=== PATIENT | female | born 2000 | race Caucasian/White ===

== ENCOUNTER 2025-02-25 13:46 | Emergency (ER) | payer OTHER, SELFPAY ==
[2025-02-25] VITALS (26 sets, daily range): BP systolic 97–106; BP diastolic 60–80
--- NOTE | 2025-02-25 15:12 | ED.GENMED ---
History of Present Illness
<Peewee Molina PA-C - Last Filed: 02/25/25 23:06>
General
Chief Complaint: Fainting/Passed Out
Time Seen by Provider: 02/25/25 14:14
History of Present Illness
History of Present Illness:
24-year-old autistic female presents to the emergency department for evaluation after multiple syncopal events. Apparently went to the primary care physician's office for URI symptoms and had a syncopal event without a prodrome that occurred while
sitting on the exam table. Shortly after waking up she got up and syncopized again. On arrival the patient is her neurologic baseline, agitated and does not wish to be in the emergency department. Abrasions noted to the forehead as well as left
face. No reported vomiting noted. No [id number] medications were given today for cold symptoms. No recent fevers or chills
Review of Systems
<Peewee Molina PA-C - Last Filed: 02/25/25 23:06>
Review of Systems
Allergies reviewed?: Yes
All Other Systems: ROS reviewed and negative except as documented in HPI and ROS
Phy Exam
<Peewee Molina PA-C - Last Filed: 02/25/25 23:06>
Physical Exam
Physical Exam:
GEN: Well appearing, NAD, WDWN
HEENT: Oral mucosa moist, no scleral icterus
Cardiac: Regular rate
Lung: No respiratory distress, no tachypnea
MSK: No gross deformity or injuries
Skin: Good color, no pallor or jaundice, no rashes
Neuro: AO x3, moves all extremities freely
Psych: Calm, cooperative
Course
<Peewee Molina PA-C - Last Filed: 02/25/25 23:06>
Orders/Labs/Results
Orders:
Orders
02/25/25 14:07
Electrocardiogram (*1) Urgent
Reason for Study: Chest Pain
EKG- Treatment ONCE
02/25/25 14:34
Test Result ONCE
02/25/25 15:10
Ketamine [Ketamine HCl] 300 mg IM NOW STA
02/25/25 15:43
COVID-19 Antigen Urgent
Source: Nasal Swab
Complete Blood Count/With Diff Urgent
Comprehensive Metabolic Panel Urgent
HCG, Serum Qualitative Screen Urgent
Influenza A+B Rapid Molecular Urgent
CHERYL Source: Nasal Swab
Specimen Description:
02/25/25 16:38
Ondansetron Injectable [Zofran] 4 mg IV NOW STA
Abnormal Lab Results
02/25/25
15:43
MCH 26.6 L pg
(27.0-31.0)
MCHC 31.9 L g/dL
(33.0-37.0)
MPV 11.6 H fL
(7.4-10.4)
Absolute Lymphs (auto) 0.4 L 10^3/uL
(1.2-3.4)
Absolute Monos (auto) 1.1 H 10^3/uL
(0.1-0.6)
Immature Gran % 0.7 H %
(0-0.5)
Lymphocytes % 6.2 L %
(20.5-51.1)
Monocytes % 17.5 H %
(1.7-9.3)
02/25/25 15:43
02/25/25 15:43
Vital Signs
Initial and Last Documented VS:
Initial Vital Signs
Temp Pulse Resp BP Pulse Ox
98.2 F 98 16 98/60 98
02/25/25 14:03 02/25/25 14:03 02/25/25 14:03 02/25/25 14:03 02/25/25 14:03
Last Documented Vital Signs
Temp Pulse Resp BP Pulse Ox
98.2 F 87 17 103/80 95
02/25/25 14:03 02/25/25 18:05 02/25/25 18:05 02/25/25 18:05 02/25/25 18:05
<Zia Kim MD - Last Filed: 02/25/25 18:54>
Orders/Labs/Results
Orders:
Orders
02/25/25 14:07
Electrocardiogram (*1) Urgent
Reason for Study: Chest Pain
EKG- Treatment ONCE
02/25/25 14:34
Test Result ONCE
02/25/25 15:10
Ketamine [Ketamine HCl] 300 mg IM NOW STA
02/25/25 15:43
COVID-19 Antigen Urgent
Source: Nasal Swab
Complete Blood Count/With Diff Urgent
Comprehensive Metabolic Panel Urgent
HCG, Serum Qualitative Screen Urgent
Influenza A+B Rapid Molecular Urgent
CHERYL Source: Nasal Swab
Specimen Description:
02/25/25 16:38
Ondansetron Injectable [Zofran] 4 mg IV NOW STA
Abnormal Lab Results
02/25/25
15:43
MCH 26.6 L pg
(27.0-31.0)
MCHC 31.9 L g/dL
(33.0-37.0)
MPV 11.6 H fL
(7.4-10.4)
Absolute Lymphs (auto) 0.4 L 10^3/uL
(1.2-3.4)
Absolute Monos (auto) 1.1 H 10^3/uL
(0.1-0.6)
Immature Gran % 0.7 H %
(0-0.5)
Lymphocytes % 6.2 L %
(20.5-51.1)
Monocytes % 17.5 H %
(1.7-9.3)
02/25/25 15:43
02/25/25 15:43
Vital Signs
Initial and Last Documented VS:
Initial Vital Signs
Temp Pulse Resp BP Pulse Ox
98.2 F 98 16 98/60 98
02/25/25 14:03 02/25/25 14:03 02/25/25 14:03 02/25/25 14:03 02/25/25 14:03
Last Documented Vital Signs
Temp Pulse Resp BP Pulse Ox
98.2 F 87 17 103/80 95
02/25/25 14:03 02/25/25 18:05 02/25/25 18:05 02/25/25 18:05 02/25/25 18:05
Procedures
<Peewee Molina PA-C - Last Filed: 02/25/25 23:06>
Moderate Sedation
ASA Risk Score: Class I
Chart and allergies reviewed: Yes
Consent for anesthesia obtained: Yes
Time out completed (validating right patient & procedure): Yes
Moderate Sedation Start Time(when first medication is given): 15:20
History of difficult intubation: No
Airway free of obstruction: Yes
Patient has a gag reflex: Yes
Patient is able to open mouth: Yes
Patient has no dentures: Yes
Patient has no loose teeth: Yes
Medication administered by Provider during Moderate Sedation: Other (ketamine)
Total dose administered: 300
Time drug administered: 15:20
Moderate Sedation Procedure End Time: 17:54
<Peewee Molina PA-C - Last Filed: 02/25/25 23:06>
MDM/Problems Addressed
MDM/Problems Addressed:
Due to abrupt onset of drops and patient required workup with EKG and labs. Due to her autism disorder and significant agitation, required ketamine sedation to facilitate workup. Sedation was tolerated well without any complications. Workup was
grossly unremarkable. May require outpatient Holter
<Peewee Molina PA-C - Last Filed: 02/25/25 23:06>
*Pulse Oximetry
SaO2: 98
Oxygen Mode of Delivery: Room air
Patient hypoxic: no
*Critical Care Note
Total Time (30-74mins, 75-104mins- exclusive of procedures): Not Applicable
ED Attending Note
<TERRI Brar-Kole - Last Filed: 02/25/25 23:06>
-
Portions of this chart may have been created with voice recognition software.� Occasional wrong word or��sound alike� substitutions may have occurred due to the inherent limitations of voice recognition software.
<Zia Kim MD - Last Filed: 02/25/25 18:54>
ED Attending Note
Patient seen and examined by attending physician: Yes
ED Attending Note:
I have seen and evaluated the patient with a [id number] encounter. I have spoken to the advance practicer provider and involved in the medical history, the physical exam, medical decision making.
Evaluation and management service: agree unless noted differently below.
Results interpretation: agree unless noted differently below.
Focused HPI: 24-year-old female with a past medical history of autism presents to the emergency room with her parents for evaluation after a syncopal event. Mother reports patient has had a 'head cold' for the past day or 2. Went to primary care
office today to be assessed and apparently while in the exam paperwork had witnessed syncopal event. She did fall down and suffered some abrasions to the face. When I tried to help her up patient had second event. Since then she has been behaving
normally. Aside from facial abrasions no reported serious injuries. No history of similar issues in the past.
Physical exam: Awake and alert, somewhat anxious. Vital signs all within acceptable range.
Medical Decision Makin-year-old female presents after syncope x 2 in quick succession. Unfortunately with her history of autism she has been very resistant to allow for even an EKG here; with 2 episodes in short order she should have
assessment including labs and decision was made to sedate with ketamine to facilitate workup. Parents agreeable. Send basic labs, check EKG, hCG, viral swabs. Monitor on telemetry. Reassess at the above.
Labs reviewed and unremarkable, EKG sinus rhythm no ectopy. Patient clinically stable throughout ER observation. Plan to discharge follow-up with primary provider on an outpatient basis.
Discharge Plan
Departure
Patient Disposition: Home (Routine Discharge)
Date of Disposition: 02/25/25
Time of Disposition: 18:30
Patient with high blood pressure during this ER visit?: No
Discharge Problem:
Syncope
Instructions: Syncope (Fainting) (DC)
Prescriptions:
No Action
Zoloft:
1.5 ml PO DAILY
amoxicillin 250 MG/5 ML suspension for reconstitution
500 mg PO BID Qty: 200 0RF
Referrals:
Suzette Puckett DO [Family Provider, Family Practice]
Lindsay Britton DO [Active, Cardiology]
Activity Restrictions/Additional Instructions:
If there are any further fainting events please consider following up with cardiology for home cardiac monitoring
Interventions
Interventions:
*General Assessment Last Done: 02/25/25 14:03
*Neglect/Abuse Screening Last Done: 02/25/25 14:03
*ED COVID-19 Vaccine History Last Done: 02/25/25 16:02
*ED Influenza Vaccine History Last Done: 02/25/25 16:02
*Risk Screen - Suicide (C-SSRS) Last Done: 02/25/25 14:03
*Nursing Disposition Last Done: 02/25/25 18:53
ED- Cardiac Assessment Last Done: 02/25/25 16:01
ED- Neurological Assessment Last Done: 02/25/25 16:01
Discharge Date and Time
Discharge Date/Time: 02/25/25 18:54
Print Language: SETSWANA
[2025-02-25] MEDS: KETAMINE HCL 300 MG IM (15:20)
[2025-02-25 16:02] LABS: Hematocrit 38.9 % (37.0-47.0); Hemoglobin 12.4 g/dL (12.0-16.0); Mean Corp Hgb Conc. 31.9 g/dL (33.0-37.0); Mean Corpuscular Volume 83.3 fL (81.0-99.0); Nucleated Red Blood Cells % 0 %; Platelet Count 210 10^3/uL (130-400); Red Cell Dist. Width 13.4 % (11.5-14.5)
[2025-02-25 16:06] LABS: HCG, Serum Qualitative Screen Negative
[2025-02-25 16:12] LABS: ALT (SGPT) 20 U/L (0-35); AST (SGOT) 25 U/L (14-36); Albumin 4.7 g/dl (3.5-5.0); Alkaline Phosphatase 97 U/L (38-126); Blood Urea Nitrogen 11 mg/dl (7-17); Calcium 9.5 mg/dl (8.4-10.2); Carbon Dioxide 28 mmol/L (22-30); Chloride 101 mmol/L (98-107); Glucose 90 mg/dl (70-99); Potassium 4.4 mmol/L (3.5-5.1); Sodium 135 mmol/L (135-145); Total Protein 7.6 g/dl (6.3-8.2); eGFR > 60.00
[2025-02-25 16:26] LABS: COVID-19 Antigen Negative (Negative)
[2025-02-25] MEDS: ZOFRAN 4 MG IV (18:16)
== END 2025-02-25 18:54 | disposition home or self-care (01) ==
LOC: EMR 13:46
PROVIDERS: Physician Assistant; EMERGENCY PHYSICIAN Emergency Medicine; FAMILY PHYSICIAN Family Medicine
DX: R55 Syncope and collapse (principal); S00.81XA Abrasion of other part of head, initial encounter; Z11.52 Encounter for screening for COVID-19; W19.XXXA Unspecified fall, initial encounter; F84.0 Autistic disorder
CPT/HCPCS: 99285; 96374; 99152; 80053; 84703; 85025; 87502; 87811; 93005